=== PATIENT | male | born 1985 | race Caucasian/White ===

== ENCOUNTER 2023-01-01 15:37 | Emergency (ER) | payer SELFPAY ==
[2023-01-01] MEDS ORDERED: Ketorolac 30 MG/ML SDV IM ONE (16:49)
[2023-01-01] MEDS ORDERED: Lidocaine 4% 1 each Patch TOP STA (16:52)
== END 2023-01-01 17:59 | disposition home or self-care (01) ==
LOC: MW.ED 15:37
DX: M54.41 Lumbago with sciatica, right side (principal); Z88.0 Allergy status to penicillin; Z72.0 Tobacco use
CPT/HCPCS: 73502; 96372; 99283; A9270; J1885; J3360